=== PATIENT | male | born 1985 | race African-American/Black ===

== ENCOUNTER 2022-05-22 13:02 | Emergency (ER) | payer OTHER ==
[~2022-05-22] VITALS: Ht 172.7 cm; Wt 73.0 kg
[2022-05-22] MEDS ORDERED: ACETAMINOPHEN 325MG TABLET PO ONE (13:45)
[2022-05-22] MEDS ORDERED: ACET-2708 MT (14:23)
[2022-05-22 14:34] VITALS: BP 126/77
== END 2022-05-22 14:36 | disposition home or self-care (01) ==
LOC: ER 13:15
DX: U07.1 COVID-19 (principal)
CPT/HCPCS: 71045; 99283